=== PATIENT | female | born 1980 | race Caucasian/White ===

== ENCOUNTER 2019-01-10 09:56 | Day surgery (SDC) | payer OTHER ==
[2019-01-10 11:07] LABS: ADD MAN DIFF? NO
[2019-01-10 11:10] LABS: WHITE BLOOD COUNT 7.1 10^3/ul (4.8-10.8)
[2019-01-10 11:10] LABS: BASOPHILS % 0.3 % (0.0-2.0); HEMATOCRIT 37.9 % (37.0-47.0); HEMOGLOBIN 12.3 g/dl (12.0-16.0); LYMPHOCYTES # 1.1 10^3/ul (0.8-2.9); LYMPHOCYTES % 15.7 % (15.0-51.0); MEAN CORPUSCULAR HEMOGLOBIN 28.8 pg (29.0-33.0); MEAN CORPUSCULAR HGB CONC 32.5 g/dl (32.0-37.0); MEAN CORPUSCULAR VOLUME 88.8 fl (82.0-101.0); MEAN PLATELET VOLUME 9.6 fl (7.4-10.4); MONOCYTE # 0.6 10^3/ul (0.3-0.9); MONOCYTES % 8.9 % (0.0-11.0); NEUTROPHIL # 5.3 10^3/ul (1.6-7.5); NEUTROPHILS % 74.8 % (39.0-77.0); PLATELET COUNT 216 10^3/UL (140-415); RED BLOOD COUNT 4.27 10^6/ul (4.20-5.40); RED CELL DISTRIBUTION WIDTH 16.2 % (11.5-14.5)
[2019-01-10 11:25] LABS: ANION GAP 9 (5-13); BLOOD UREA NITROGEN 10 mg/dl (7-20); CALCIUM 8.5 mg/dl (8.4-10.2); CARBON DIOXIDE 18 mmol/L (21-31); CHLORIDE 114 mmol/L (97-110); CREATININE 0.49 mg/dl (0.44-1.00); Estimated GFR > 60 mL/min (>60); GLUCOSE 87 mg/dl (70-220); POTASSIUM 3.5 mmol/L (3.5-5.1); SODIUM 141 mmol/L (135-144)
[2019-01-10] MEDS: SOD CHLORIDE 0.9% 1,000 ML IV (11:27)
[2019-01-10 11:28] LABS: INR 0.93; PROTIME 12.6 Sec (11.9-14.9)
[2019-01-10 11:29] LABS: PARTIAL THROMBOPLASTIN TIME 31.9 Sec (23.0-35.0)
[2019-01-10] MEDS ORDERED: EPHEDrine 25 MG/5 ML SYG (12:59)
[2019-01-10] MEDS ORDERED: MIDAZOLAM 1 MG/ML 2 ML INJ (12:59)
[2019-01-10] MEDS ORDERED: PROPOFOL 40 ML (12:59)
[2019-01-10] MEDS ORDERED: PHENYLephrine (100 MCG/ML) 10ML SYG (12:59)
[2019-01-10] MEDS ORDERED: LABETALOL HCL 20MG INJ IV (13:00)
[2019-01-10] MEDS ORDERED: HYDROmorphONE 1 MG/5 ML IV SYRINGE IV (13:00)
[2019-01-10] MEDS ORDERED: FENTAnyl 50 MCG/ML VIAL IV (13:00)
[2019-01-10] MEDS ORDERED: METOCLOPRAMIDE 10 MG INJ IV (13:00)
[2019-01-10] MEDS ORDERED: EPHEDrine 25 MG/5 ML SYG IV (13:00)
[2019-01-10] MEDS ORDERED: ONDANSETRON 4 MG INJ IV (13:00)
[2019-01-10] MEDS ORDERED: HYDROCORTISONE 100 MG INJ (13:04)
[2019-01-10] MEDS ORDERED: DEXTROSE 50% 50 ML SYRINGE (13:09)
[2019-01-10] MEDS ORDERED: PROPOFOL 20 ML (14:52)
== END 2019-01-10 17:00 | disposition home or self-care (01) ==
LOC: SDS 09:56
DX: I27.20 Pulmonary hypertension, unspecified (principal); E11.9 Type 2 diabetes mellitus without complications
CPT/HCPCS: 80048; 82962; 84703; 85025; 85610; 85730; 93005; 93312; 93320; 93325